=== PATIENT | female | born 1950 | race Caucasian/White ===

== ENCOUNTER 2016-05-06 06:35 | Inpatient (IN) | payer OTHER ==
[2016-03-17 08:54] VITALS: BMI 35.0
--- NOTE | 2016-03-17 09:19 | PAT Medication Instructions ---
Service Date Mar 17, 2016. Current Home Medication List Amlodipine (Norvasc), 10 MG PO QAM Hydrochlorothiazide (Hctz *), 25 MG PO QAM Ibuprofen Tab (Advil), 400-600 MG PO Q6H PRN for Pain Losartan Potassium (Cozaar *), 50 MG PO QAM Metformin Hcl (Glucophage), 500 MG PO DINNER Medication Instructions For Your Scheduled Surgery - Check with surgeon for instructions: Ibuprofen Tab (Advil), 400-600 MG PO Q6H PRN for Pain - Hold the following medications 48 hours prior to surgery: Metformin Hcl (Glucophage), 500 MG PO DINNER - Hold the following medications the morning of surgery: Losartan Potassium (Cozaar *), 50 MG PO QAM Hydrochlorothiazide (Hctz *), 25 MG PO QAM - Take the following medications the morning of surgery with a sip of water: Amlodipine (Norvasc), 10 MG PO QAM If you have any questions please call us at [phone] (Anjelica Long PA-C) or [phone] or [phone]
[2016-03-17 09:44] LABS: BASO % 0.9 %; BASO ABS # 0.08 K/uL (0-0.2); COMPLETE YES; EOS % 3.5 %; HEMATOCRIT 39.7 % (37-47); IG% 0.4 %; LYMPH % 29.2 %; LYMPH ABS # 2.47 K/uL (1.2-3.4); MEAN CELL VOLUME 83.6 fL (80-100); MEAN CORPUSCULAR HEMOGLOBIN 28.2 pg (25-34); MEAN CORPUSCULAR HGB CONC 33.8 g/dl (32-36); MEAN PLATELET VOLUME 10.6 fL (7.4-10.4); MONO % 8.6 %; NEUT % 57.4 %; PLATELET COUNT 369 K/uL (130-400); RED BLOOD COUNT 4.75 M/uL (4.2-5.4); WHITE BLOOD COUNT 8.46 K/uL (4.8-10.8)
[2016-03-17 10:06] LABS: PROTHROMBIN TIME (PATIENT) 10.4 SECONDS (9.0-12.0)
--- NOTE | 2016-03-17 10:13 | DIAGNOSTIC IMAGING REPORT ---
TWO VIEW CHEST CLINICAL HISTORY: Preoperative examination. FINDINGS: PA and lateral chest radiographs are compared to study dated 01/22/2015. The heart is enlarged and there is mild atherosclerotic calcification of the thoracic aorta. The pulmonary vasculature is noncongested. The lungs appear hyperinflated. Nonspecific interstitial thickening is similar to previous. No airspace consolidation or pleural effusion is seen. Small calcified granulomas are suspected. There is no pneumothorax. The skeletal structures are osteopenic. Degenerative change is noted throughout the thoracic spine. IMPRESSION: Cardiomegaly with no active disease in the chest. Electronically signed by: Marty Valenzuela M.D. 03/17/2016 10:12 AM Dictated Date/Time: 03/17/2016 10:08 AM
[2016-03-17 10:20] LABS: BLOOD UREA NITROGEN 14 mg/dl (7-18); BUN/CREATININE RATIO 22.2 (10-20); C-REACTIVE PROTEIN < 0.29 mg/dl (0-0.29); CALCIUM 9.3 mg/dl (8.5-10.1); CARBON DIOXIDE 28 mmol/L (21-32); CHLORIDE 103 mmol/L (98-107); CREATININE 0.65 mg/dl (0.60-1.20); GLUCOSE 106 mg/dl (70-99); POTASSIUM 3.7 mmol/L (3.5-5.1); SODIUM 140 mmol/L (136-145)
--- NOTE | 2016-04-09 15:34 | HISTORY & PHYSICAL EXAMINATION ---
DATE OF ADMISSION: 04/13/2016 CHIEF COMPLAINT: Right knee pain. HISTORY OF PRESENT ILLNESS: The patient is a 66-year-old female now about 3 years out from left knee replacement who presents for treatment of her right knee. She has had a long history of right knee pain and discomfort that has gradually gotten worse over time. She has been through extensive conservative care including injections, which provided very temporary relief. She has got pain all the time. It is increased with weightbearing. The pain is mostly on the medial side of her knee. She also describes a burning sensation. She is happy with the left knee and would like to her right knee replaced. PAST MEDICAL HISTORY: Significant for: 1. Hypertension. 2. Diabetes x7 years. 3. Obesity with a BMI of 35.7. 4. Kidney stones. PAST SURGICAL HISTORY: Include: 1. Left knee replacement done in 03/12/2013. ALLERGIES: None. CURRENT MEDICINES: Include: 1. Amlodipine 10 mg. 2. Hydrochlorothiazide 25 mg a day. 3. Losartan 50 mg a day. 4. Metformin 500 mg twice a day. 5. Bactrim. SOCIAL HISTORY: A 66-year-old female. She is from [place]. She is . FAMILY HISTORY: Noncontributory. REVIEW OF SYSTEMS: Significant for diabetes. Denies any chest pain, no shortness of breath. No history of DVT or PE. PHYSICAL EXAMINATION: GENERAL: Reveals a pleasant, healthy-appearing, middle-aged female. She looks to be in good health. HEENT: Benign. NECK: Supple. No lymphadenopathy. LUNGS: Clear to auscultation. HEART: Regular rate and rhythm. ABDOMEN: Soft, nontender, nondistended. EXTREMITIES: Grossly neurovascularly intact except as follows: Examination of the right knee reveals slight varus deformity. When she weight bears, she has got a little bit of a varus thrust. She has got bony hypertrophy medially. Small knee effusion. Range of motion is 5-120. No instability. X-RAYS: X-rays of right knee revealed advanced right knee DJD. She has complete loss of her medial joint space. She has subchondral sclerosis. ASSESSMENT: A 66-year-old white female, 3 years out from a left knee replacement with advanced right knee degenerative joint disease. She has failed conservative care and will undergo a right knee replacement. PLAN: We are going to take her to the operating room and do a right total knee replacement. The risks and benefits of this procedure were explained to the patient including but not limited to DVT, PE, , infection, neurological injury, vascular injury, bleeding problem, pain, limited range of motion, stiffness, failure to relieve her symptoms, incomplete relief of symptoms, need for further surgery in the future, fracture, leg length inequality, nerve palsy, etc. The patient understands and desires. Informed consent was obtained. The patient had preoperative workup. Chest x-ray showed some mild cardiomegaly. No acute disease. EKG was normal. Labs are normal. As far as discharge plans, she is planning to be discharged to home using [facility] home health program. I will see her back 2 weeks postop. BEVERLEY
[2016-05-06] VITALS (8 sets, daily range): BP systolic 135–155; BP diastolic 73–87; PULSE 65–85; TEMP 36.4–37.2; O2SAT 94–98; Ht 165.1 cm; Wt 97.3 kg
[~2016-05-06] VITALS: Ht 165.1 cm; Wt 97.3 kg
[~2016-05-06 06:35] MED LIST: ACETAMINOPHEN 500 MG TAB PO SCH; AMLO-114 PO; BUPIVACAINE 0.5 % 5 MG/1 ML PF 10ML VIAL ONE; BUPIVACAINE LIPOSOME 266 MG, BUPIVACAINE/EPINEPHRINE INJ 50 ML, SODIUM CHLORIDE 0.9% PF... INFIL SCH; BUPIVACAINE/EPINEPHRINE 0.25% 1:200,000 30 ML VIAL ONE; CEFAZOLIN 2000 MG/60 ML D5W IV SCH; CHECK SCOPOLAMINE PATCH PLACEMENT SCH; CZR50 PO; FAMOTIDINE 20 MG TAB PO SCH; GABAPENTIN 300 MG CAP PO SCH; GLC/500 PO; HYDC25 PO; IBUP-103 PO; LACTATED RINGER'S 1000ML 1,000 ML IV SCH; LACTATED RINGER'S 1000ML 500 ML IV ONE; LACTATED RINGER'S 1000ML IV SCH; LACTATED RINGER'S 500 ML IV SCH; METOCLOPRAMIDE HCL 10 MG TAB PO SCH; SCOPOLAMINE 1.5 MG TDSY TD SCH; TRANEXAMIC ACID INJ 1,000 MG in SODIUM CHLORIDE 0.9% 100ML 100 ML IV SCH
--- NOTE | 2016-05-06 07:00 | History & Physical Bridge Note ---
H&P Re-Evaluation Bridge Note: I have examined the patient, reviewed the History & Physical and in the interval since the performance of the History & Physical I have noted the following changes of clinical significance: No changes noted
[2016-05-06] MEDS ORDERED: MIDAZOLAM HCL 1 MG/ML 2ML VIAL ONE ×2 (07:31→09:36)
[2016-05-06] MEDS ORDERED: FENTANYL CITRATE INJ 50 MCG/1 ML 2 ML VIAL ONE (07:31)
[2016-05-06] MEDS ORDERED: ONDANSETRON INJ 2 MG/ML 2 ML VIAL IV PRN ×2 (07:45→11:00)
[2016-05-06] MEDS ORDERED: FLUMAZENIL 0.1 MG/1 ML 10 ML VIAL IV PRN (07:45)
[2016-05-06] MEDS ORDERED: PHENYLEPHRINE 100MCG/ML 5ML SYR IV PRN (07:45)
[2016-05-06] MEDS ORDERED: NALOXONE HCL 0.4 MG/1 ML VIAL/CARP IV PRN (07:45)
[2016-05-06] MEDS ORDERED: LABETALOL HCL IV 5 MG/ML 20ML IV PRN (07:45)
[2016-05-06] MEDS ORDERED: ATROPINE SULFATE 0.1 MG/ML 5ML SYR IV PRN (07:45)
[2016-05-06] MEDS ORDERED: EpHEDrine SULFATE INJ 50 MG/ML AMP IV PRN (07:45)
[2016-05-06] MEDS ORDERED: BUPIVACAINE/EPINEPHRINE 0.25% 1:200,000 30 ML VIAL ONE (08:59)
[2016-05-06] MEDS ORDERED: BACITRACIN 50000 UNIT VIAL ONE (08:59)
[2016-05-06] MEDS ORDERED: SODIUM CHLORIDE 0.9% PF 50 ML VIAL ONE (08:59)
[2016-05-06] MEDS ORDERED: BUPIVACAINE LIPOSOME 1/3% 266 MG/20 ML VIAL INFIL ONE (09:00)
[2016-05-06] MEDS ORDERED: PROPOFOL IV EMULSION 10 MG/ML 20 ML VIAL IV ONE (09:46)
[2016-05-06] MEDS ORDERED: LIDOCAINE HCL 2% 2 ML VIAL (20MG/ML) ONE (10:08)
--- NOTE | 2016-05-06 10:47 | [facility] Post Operative Brief Note ---
Immediate Operative Summary Operative Date May 06, 2016. Pre-Operative Diagnosis Right Knee Degenerative Joint Disease Post-Operative Diagnosis same as pre-operative Procedure(s) Performed Right Total Knee Arthroplasty Surgeon Dr. Jhon Vlileda Line Patrolman Surgeon(s) Haroon Orellana PA-C Estimated Blood Loss 50ml Findings Right Knee DJD Specimens A: Right knee bone and tissue Drains None Anesthesia Spinal Complication(s) None Disposition Recovery Room / PACU
[2016-05-06] MEDS ORDERED: GLUCOSE 10 TABS/TUBE PO PRN (11:00)
[2016-05-06] MEDS ORDERED: ZOLPIDEM TARTRATE 5 MG TAB PO PRN (11:00)
[2016-05-06] MEDS ORDERED: GLUCOSE 40% GEL 15 GM TUBE PO PRN (11:00)
[2016-05-06] MEDS ORDERED: HYDROmorphone INJ 0.5 MG/0.5 ML SYR IV PRN (11:00)
[2016-05-06] MEDS ORDERED: GLUCAGON FOR INJ 1 MG VIAL SQ PRN (11:00)
[2016-05-06] MEDS ORDERED: MAGNESIUM HYDROXIDE SUSP 30 ML UDC PO PRN (11:00)
[2016-05-06] MEDS ORDERED: SILVER SULFADIAZINE 1% CR 50 GM JAR EXT PRN (11:00)
[2016-05-06] MEDS ORDERED: DiphenhydrAMINE HCL 50 MG/ML VIAL IV PRN (11:00)
[2016-05-06] MEDS ORDERED: BISACODYL 10 MG SUPP PR PRN (11:00)
[2016-05-06] MEDS ORDERED: DEXTROSE 50% 50 ML SYR IV PRN (11:00)
[2016-05-06] MEDS ORDERED: ALUMINUM/MAGNESIUM/SIMETH (MAALOX MAX) 30 ML UDC PO PRN (11:00)
[2016-05-06] MEDS ORDERED: METOCLOPRAMIDE HCL INJ 5 MG/ML 2 ML VIAL IV PRN (11:00)
--- NOTE | 2016-05-06 11:18 | OPERATIVE REPORT ---
DATE OF OPERATION: 05/06/2016 SURGEON: Jhon Villeda MD CRIB ATTENDANT: RAVIN Hurst PREOPERATIVE DIAGNOSIS: Right knee degenerative joint disease. POSTOPERATIVE DIAGNOSIS: Same. PROCEDURE PERFORMED: Right cemented posterior stabilized total knee arthroplasty. COMPLICATIONS: None. ESTIMATED BLOOD LOSS: 50 mL. FLUID REPLACEMENT: 1100 mL crystalloid fluid replacement. ANESTHESIA: Spinal with adductor canal block. DRAINS: None. SPECIMENS: Right knee sent for pathology. TOURNIQUET TIME: 51 minutes at 300 mmHg. OPERATIVE INDICATIONS: The patient is a 66-year-old female who is now about 3 years out from a left knee replacement. Over the past several years, she developed increased pain and discomfort in her right knee. She failed conservative treatment. X-rays revealed advanced right knee DJD. The patient elected to proceed with operative treatment. OPERATIVE FINDINGS: Operative findings revealed advanced right knee DJD with grade 4 changes of the medial compartment as well as patellofemoral compartment. The lateral compartment was pretty well preserved. There is no major eburnation, but full thickness cartilage loss in both these areas. She had a moderate sized joint effusion. Small osteophytes primarily in the medial compartment. OPERATIVE IMPLANTS: Operative implants consisted of: 1. Biomet Vanguard size 60 right posterior stabilized femoral component. 2. Biomet size 63 tibial tray. 3. A 12-mm posterior stabilized polyethylene insert. 4. A 31 x 8 all poly patella. OPERATIVE PROCEDURE: The patient was taken to the operating room, identified and placed on operative table in the supine position. All contact areas were appropriately padded. IV antibiotics were provided by the anesthesia team. A spinal anesthetic and adductor canal block had been provided in the holding area. Castillo catheter was placed in sterile fashion. Right thigh tourniquet was then placed. The right lower extremity was then prepped and draped in the usual sterile fashion. The right leg was elevated and exsanguinated with Esmarch and tourniquet was placed at 300 mmHg. An anterior approach to the right knee was then performed through a longitudinal incision centered over the patella. Sharp dissection was carried through the subcutaneous tissues down to the level of the extensor mechanism. A medial parapatellar arthrotomy incision was made. Some subperiosteal dissection was carried out medially. The fat pad was resected from beneath the patellar tendon. The lateral patellofemoral ligament was released. The patella was everted and knee was flexed. The osteophytes were taken off the distal femur. The ACL and PCL were then released from the distal femur and the tibia subluxated anteriorly. The external tibial alignment jig was then placed in the anterior face of the tibia and adjusted 14 mm medially. Proximal tibial cut was made to remove about 2 mm of bone from the most deficient aspect of the medial tibial plateau. The tibia was then sized to a size 63. Attention was then drawn to the femur. The distal femur was entered with a sharp drill bit. Intramedullary canal was suctioned. A right 5-degree valgus cutting guide was placed. Distal femoral cutting block was pinned in place. Distal femoral cut was made to take an additional 3 mm of bone off the distal femur. The femur was then sized to a size 60. We did downsize this slightly. The AP cutting block was pinned parallel to the epicondylar axis, which was 4 degrees of external rotation. The anterior cut, anterior chamfer, posterior cut, and posterior chamfer cuts were made. Box cutting guide was placed and adjusted slightly lateral and the box cut was made. The knee was flexed. The remnants of the medial and lateral menisci were excised. The osteophytes were taken off the posterior aspect of the femur. A trial femoral component was placed. Tibial tray was pinned in maximum external rotation and drill and stem punch were used to create defect in proximal tibia for the tibial tray. The knee was then trialed and the 12-mm insert fit most appropriately. There was a little bit lax with a 10 insert and her knee did hyperextend. Attention was then drawn to the patella. The patella was cleaned of all soft tissues. Patella thickness measured 20 mm in thickness and was cut down to 12. It was sized to a size 31 patella. Lug holes were drilled for the 31 patella. Lateral osteophyte was removed. Patella button was placed. Knee was taken through range of motion and the patella tracked nicely with no thumbs test. Attention was then drawn toward placement of permanent components. All trial components were removed. A bone plug was placed in the distal femur to limit blood loss. A double batch of Palacos G cement was mixed. A right size 60 posterior stabilized femoral component, size 63 tibial tray, a 12-mm posterior stabilized polyethylene insert, and a 31 x 8 all poly patella then cemented in place. Knee was brought out into full extension until cement hardened. A final cement check was then performed. Pericapsular tissues were injected with 100 mL of a combination of 20 mL of Exparel, 30 mL of normal saline, and 50 mL of 0.25% Marcaine with epinephrine. The patient did receive 1 gram of tranexamic acid. The tourniquet was let down for final tourniquet time of 51 minutes. Hemostasis was assured with use of electrocautery. The extensor mechanism was then closed with a combination of #1 PDS suture and #1 Vicryl suture in a [id number] fashion. The extensor mechanism was checked and found to be intact. The subcutaneous tissues were then closed with 2-0 Dexon suture in a buried interrupted fashion. Skin was closed skin jovani. Leg was then cleaned and dried and a sterile dressing of Xeroform, 4 x 4, sterile cast padding and Endy bandage were applied. The patient then transferred to the recovery room in stable condition. The patient tolerated the procedure well with no complications. All needle and sponge counts were correct at the end of the operation. I attest to the content of the Intraoperative Record and any orders documented therein. Any exceptio ns are noted below.
[2016-05-06] MEDS: FENTANYL CITRATE INJ 50 MCG/1 ML 2 ML VIAL IV PRN ×8 (11:24→12:17)
--- NOTE | 2016-05-06 11:39 | Anesthesiology Progress Note ---
Anesthesia Post Op Note Date & Time May 06, 2016 at 11:40 Vital Signs Pain Intensity: 3 Vital Signs Past 12 Hours Date Time Temp Pulse Resp B/P Pulse Ox O2 Delivery O2 Flow Rate FiO2 05/06/16 10:54 37.5 90 16 143/72 97 Mask 10 05/06/16 07:08 36.6 85 20 148/86 98 Room Air Notes Mental Status: alert / awake / arousable, participated in evaluation Pt Amnestic to Procedure: Yes Nausea / Vomiting: adequately controlled Pain: adequately controlled Airway Patency, RR, SpO2: stable & adequate BP & HR: stable & adequate Hydration State: stable & adequate Neuraxial Anesthesia: was administered, sensory block is resolving Anesthetic Complications: no major complications apparent
[2016-05-06] MEDS ORDERED: FENTANYL CITRATE INJ 50 MCG/1 ML 2 ML VIAL IV PRN (11:45)
--- NOTE | 2016-05-06 11:46 | DIAGNOSTIC IMAGING REPORT ---
RIGHT KNEE 2 VIEWS History: Right total knee arthroplasty. Degenerative arthritis. Postop. FINDINGS: The patient is status post a right total knee arthroplasty. The hardware is intact. No fracture or dislocation. Skin jovani are in place. IMPRESSION: Right total knee arthroplasty. No evidence for hardware complication. Electronically signed by: David Yeager M.D. 05/06/2016 11:45 AM Dictated Date/Time: 05/06/2016 11:45 AM
[2016-05-06] MEDS: MEPERIDINE HCL 25 MG/ML CARP IV PRN ×2 (12:22→12:30)
[2016-05-06] MEDS: SODIUM CHLORIDE 0.9% 1000ML 1,000 ML IV SCH ×2 (14:13→21:38)
[2016-05-06] MEDS: TRAMADOL HCL 50 MG TAB PO PRN (14:17)
--- NOTE | 2016-05-06 15:27 | PROGRESS NOTE ---
DATE: 05/06/2016 SUBJECTIVE: A 66-year-old white female postop from a right knee replacement. She is doing well. Not nauseated all, which is a big relief for her. Some pain. It is manageable. No chest pain or shortness of breath. Not feeling dizzy or lightheaded. OBJECTIVE: VITAL SIGNS: Temperature is 36.4. Vital signs stable. GENERAL: Reveals a healthy middle-aged female. She is sitting up in bed and talking to her . She looks pretty comfortable. LUNGS: Clear to auscultation. HEART: Regular rate and rhythm. ABDOMEN: Soft, nontender, nondistended. EXTREMITIES: Grossly neurovascularly intact except as follows: Examination of the right leg reveals the leg to be well aligned. Dressing is clean, dry and intact. She can dorsiflex and plantarflex her foot appropriately. She is neurologically intact. X-RAYS: X-rays of the right knee from recovery room reviewed. It shows a cemented posterior stabilized total knee arthroplasty. Components are in good position. No signs of problems. ASSESSMENT: A 66-year-old white female postop from a right knee replacement, doing pretty well. Her pain is controlled. She is not having any nausea. She is neurologically intact. PLAN: 1. DVT prophylaxis including thigh-high TEDs, SCDs, and aspirin twice a day. 2. PT/OT. Weightbearing as tolerated. Right total knee protocol. 3. IV antibiotics x24 hours. 4. Pain control. Doing well with current pain regimen. We are going to try and limit narcotics to avoid nausea. 5. Disposition: Plan to discharge to home with home health once adequately recovered.
[2016-05-06] MEDS: CHECK SCOPOLAMINE PATCH PLACEMENT SCH (16:47)
[2016-05-06] MEDS: CEFAZOLIN IV 2,000 MG in DEXTROSE 5% 50ML 50 ML IV SCH (16:47)
[2016-05-06] MEDS: ACETAMINOPHEN 500 MG TAB PO SCH (16:48)
[2016-05-06] MEDS: KETOROLAC TROMETHAMINE 15 MG/ML VIAL IV. SCH ×2 (16:51→21:41)
[2016-05-06] MEDS: INSULIN HUMAN REGULAR SC SCH ×2 (17:08→21:47)
[2016-05-06] MEDS ORDERED: TRANEXAMIC ACID INJ 1,000 MG in SODIUM CHLORIDE 0.9% 100ML 100 ML IV SCH (18:00)
[2016-05-06] MEDS: FERROUS GLUCONATE 324 MG TAB PO SCH (18:30)
[2016-05-06] MEDS: DOCUSATE SODIUM 100 MG CAP PO SCH (21:37)
[2016-05-06] MEDS: ASPIRIN 325 MG ECTAB PO SCH (21:37)
[2016-05-07] VITALS (7 sets, daily range): BP systolic 133–177; BP diastolic 70–81; PULSE 75–82; TEMP 36.7–37.3; O2SAT 92–96
[2016-05-07] MEDS: CEFAZOLIN IV 2,000 MG in DEXTROSE 5% 50ML 50 ML IV SCH (00:40)
[2016-05-07] MEDS: ACETAMINOPHEN 500 MG TAB PO SCH ×4 (00:41→23:45)
[2016-05-07] MEDS: CHECK SCOPOLAMINE PATCH PLACEMENT SCH ×4 (00:41→23:45)
[2016-05-07] MEDS: KETOROLAC TROMETHAMINE 15 MG/ML VIAL IV. SCH ×4 (03:54→21:24)
[2016-05-07] MEDS: SODIUM CHLORIDE 0.9% 1000ML 1,000 ML IV SCH (06:03)
[2016-05-07 06:47] LABS: HEMATOCRIT 36.2 % (37-47); MEAN CELL VOLUME 82.1 fL (80-100); MEAN CORPUSCULAR HEMOGLOBIN 27.4 pg (25-34); MEAN CORPUSCULAR HGB CONC 33.4 g/dl (32-36); PLATELET COUNT 380 K/uL (130-400); RED BLOOD COUNT 4.41 M/uL (4.2-5.4); WHITE BLOOD COUNT 14.53 K/uL (4.8-10.8)
[2016-05-07 07:12] LABS: BUN/CREATININE RATIO 12.3 (10-20); CALCIUM 8.8 mg/dl (8.5-10.1); CREATININE 0.66 mg/dl (0.60-1.20); POTASSIUM 3.6 mmol/L (3.5-5.1)
[2016-05-07] MEDS ORDERED: ASPEC325 PO (07:28)
[2016-05-07] MEDS ORDERED: ULT50X PO (07:28)
[2016-05-07] MEDS ORDERED: ACET-1138 PO (07:28)
[2016-05-07] MEDS ORDERED: PROM25TA9 PO (07:28)
--- NOTE | 2016-05-07 07:30 | Discharge Instructions ---
Discharge Instructions Date of Service May 07, 2016. Admission Reason for Admission: Right Knee Osteoarthritis Discharge Discharge Diagnosis / Problem: Right Knee Replacement Discharge Goals Goal(s): Decrease discomfort, Improve function, Increase independence, Improve disease control Activity Recommendations Activity Limitations: per Instructions/Follow-up section Weightbearing Status: Right weightbearing . Instructions / Follow-Up Instructions / Follow-Up ACTIVITY RECOMMENDATIONS: Physical Therapy: * You will go to physical therapy three times each week for four to six weeks after your surgery in order to regain your knee range of motion and to retrain your knee to work properly. * It is just as important to make sure you are getting your knee perfectly straight as it is to regain your knee bend. * Taking a pain pill an hour before therapy can help you have a more productive and comfortable therapy session. Home Exercise: * You were shown a series of exercises (heel props, heel slides, etc.) in the hospital. Do these exercises three to four times each day including the exercises you were shown in physical therapy. Walking: * Get up and walk several times each day. For the first four weeks, try not to stand or walk for more than one hour at a time. If you do stand or walk for more than one hour, you will not hurt anything, but your knee and leg will likely swell. * As you feel comfortable, you may change from the walker or crutches to a cane and then to independent walking. MEDICATIONS: New Medicine: * You will likely be taking one or more of these medications: 1. Tramadol - A quick and shorter-acting pain medication. Take one to two tablets every four to six hours to lessen your pain. 2. Aspirin - Thins your blood to lessen the chance of forming a blood clot. * The most common side effects of pain medicine and iron are nausea and constipation. If nausea or constipation is too much of a problem or if you have any questions about your new medicines or doses, call [facility] at . We will try to help you manage these issues. VERY IMPORTANT TO READ AND REVIEW" Pain: * The immediate post-operative period after knee replacement surgery is often quite painful. * You are given a prescription for pain medicine. You should take it, as directed, when you need it, especially before physical therapy and before going to bed. Pain that interferes with sleep is very common and can last several months. * You will likely need pain medicine for the first four to six weeks. It will not stop all of the pain. The pain will lessen and as you feel better, you may change to milder pain medicine such as Tylenol. * The most common side effects of pain medicine are nausea and constipation, so don't take more than you need. SPECIAL CARE INSTRUCTIONS: TEDs/Elastic Stockings: * The white elastic stockings help limit swelling and prevent blood clots from forming in your legs. The more you wear them, the more they work. * Wear them for six weeks after knee replacement surgery and four weeks after partial knee replacement. Prevention of Infection: * Take antibiotics one hour before any dental cleaning, dental work, urological procedure, gastrointestinal procedure or any invasive surgery in order to prevent your new joint from getting infected. * You may get the antibiotics from the doctor performing the procedure or you may call our office at before and we will call in a prescription to the pharmacy of your choice. Things to Watch For: * Drainage from the incision site that occurs more than one week after your surgery. * Severely increased knee/leg pain or swelling. * Increased redness at the incision site. * Fever above 102 degrees Fahrenheit. * Unusual chest pain or shortness of breath. * Unusual pain or burning with urination. Call [facility] at with any of the above problems or if you have any questions about your medicines or recovery. FOLLOW UP VISIT: Make an appointment to see your doctor for approximately two weeks after surgery for a progress check and staple removal by calling the office at . Current Hospital Diet Patient's current hospital diet: Diabetes Type 2 Diet Discharge Diet Recommended Diet: Diabetes Type 2 Diet Procedures Procedures Performed: Right Total Knee Arthroplasty Pending Studies Studies pending at discharge: no Medical Emergencies . Who to Call and When: Medical Emergencies: If at any time you feel your situation is an emergency, please call [phone] immediately. . Non-Emergent Contact Non-Emergency issues call your: Surgeon . "Provider Documentation" section prepared by Jhon Villeda. VTE Core Measure Inpt VTE Proph given/why not?: Other Anticoagulation, T.E.D. Stockings, SCD's
--- NOTE | 2016-05-07 07:36 | PROGRESS NOTE ---
DATE: 05/07/2016 SUBJECTIVE: A 66-year-old female postop day 1 from right knee replacement. She is doing well. She did not have any nausea. Some moderate pain but manageable. No chest pain or shortness of breath. Not feeling dizzy or lightheaded. OBJECTIVE: VITAL SIGNS: Temperature 36.7. Vital signs stable. PHYSICAL EXAMINATION: GENERAL: Reveals a healthy, pleasant middle-aged female. She is sitting up in bed and looks quite comfortable. LUNGS: Clear to auscultation. HEART: Regular rate and rhythm. ABDOMEN: Soft, nontender, nondistended. EXTREMITIES: Grossly neurovascularly intact except as follows: Examination of the right lower extremity reveals the leg to be well aligned. Dressing is clean, dry and intact. She can dorsiflex and plantarflex her foot appropriately. NEUROLOGIC: She is neurologically intact. LABORATORY DATA: Hemoglobin 12.1, hematocrit 36.2. Electrolytes are stable. ASSESSMENT: A 66-year-old white female postop day 1 from right knee replacement, doing well. Had problems with nausea in the past but doing well with current pain regimen. PLAN: 1. DVT prophylaxis including thigh-high TEDs, SCDs, and aspirin twice a day. 2. PT/OT. Weightbearing as tolerated. Right total knee protocol. 3. Pain control, doing pretty well with current pain regimen. We are going to try and use tramadol and Toradol and limit more aggressive narcotics. 4. Disposition: Plan to discharge to home with home health once adequately recovered.
[2016-05-07] MEDS: TRAMADOL HCL 50 MG TAB PO PRN ×2 (08:20→13:03)
[2016-05-07] MEDS: LOSARTAN POTASSIUM 50 MG TAB PO SCH (08:35)
[2016-05-07] MEDS: PANTOprazole SOD 40 MG TAB PO SCH (08:35)
[2016-05-07] MEDS: FERROUS GLUCONATE 324 MG TAB PO SCH ×3 (08:35→17:37)
[2016-05-07] MEDS: MULTIVITAMIN TAB PO SCH (08:35)
[2016-05-07] MEDS: HYDROCHLOROTHIAZIDE 25 MG TAB PO SCH (08:35)
[2016-05-07] MEDS: ASPIRIN 325 MG ECTAB PO SCH ×2 (08:36→20:44)
[2016-05-07] MEDS: DOCUSATE SODIUM 100 MG CAP PO SCH ×2 (08:36→20:44)
[2016-05-07] MEDS: AMLODIPINE BESYLATE 5 MG TAB PO SCH (08:36)
[2016-05-07] MEDS: INSULIN HUMAN REGULAR SC SCH ×4 (08:44→20:49)
[2016-05-08] MEDS: TRAMADOL HCL 50 MG TAB PO PRN ×2 (03:57→08:18)
[2016-05-08] MEDS: KETOROLAC TROMETHAMINE 15 MG/ML VIAL IV. SCH (03:58)
[2016-05-08 06:35] VITALS: BP 123/76; PULSE 76; TEMP 36.9; O2SAT 94
[2016-05-08] MEDS: DOCUSATE SODIUM 100 MG CAP PO SCH (08:00)
[2016-05-08] MEDS: AMLODIPINE BESYLATE 5 MG TAB PO SCH (08:00)
[2016-05-08] MEDS: FERROUS GLUCONATE 324 MG TAB PO SCH (08:00)
[2016-05-08] MEDS: ASPIRIN 325 MG ECTAB PO SCH (08:00)
[2016-05-08] MEDS: ACETAMINOPHEN 500 MG TAB PO SCH (08:01)
[2016-05-08] MEDS: HYDROCHLOROTHIAZIDE 25 MG TAB PO SCH (08:02)
[2016-05-08] MEDS: LOSARTAN POTASSIUM 50 MG TAB PO SCH (08:02)
[2016-05-08] MEDS: MULTIVITAMIN TAB PO SCH (08:02)
[2016-05-08] MEDS: PANTOprazole SOD 40 MG TAB PO SCH (08:02)
[2016-05-08] MEDS: INSULIN HUMAN REGULAR SC SCH (08:16)
--- NOTE | 2016-05-08 08:39 | PROGRESS NOTE ---
DATE: 05/08/2016 SUBJECTIVE: A 66-year-old female postop day 2 from right knee replacement. She is doing pretty well. Pain is controlled. Not having any nausea. No chest pain or shortness of breath. OBJECTIVE: VITAL SIGNS: Temperature 36.9. Vital signs stable. PHYSICAL EXAMINATION: Examination of the right leg reveals the leg to be well aligned. Her incision is clean, dry and intact. No significant drainage. Calf is soft and supple. She is neurologically intact. ASSESSMENT: A 66-year-old female postop day 2 from a right knee replacement, doing well. Pain is controlled. PLAN: 1. DVT prophylaxis including thigh-high TEDs, SCDs, and aspirin twice a day. 2. PT/OT. Weightbearing as tolerated. Right total knee protocol. 3. Pain control, doing pretty well with current pain regimen. 4. Nausea. Has not had any real nausea after surgery. Will use antiemetic medicine as needed. 5. Disposition: Plan to discharge to home with some home health later today.
[2016-05-08 09:29] VITALS: BP 123/76; PULSE 76; TEMP 36.9; O2SAT 94
--- NOTE | 2016-05-17 18:50 | DISCHARGE SUMMARY ---
ADMITTING PHYSICIAN AND SURGEON: Dr. Villeda. ADMITTING DIAGNOSIS: Right knee degenerative joint disease. SURGERY PERFORMED: Right total knee arthroplasty. SECONDARY DIAGNOSES: Includes hypertension, diabetes, obesity, and kidney stones. CONSULTS: None obtained. HISTORY AND PHYSICAL EXAMINATION: Well documented on the patient's chart. HOSPITAL COURSE: The patient was admitted on 05/06/2016 and underwent total knee arthroplasty, tolerated the procedure well. There were no complications. She was transferred to the PACU postoperatively and later to the orthopedic floor for further care. She was given Ancef for antibiotic prophylaxis, ROXANN stockings, SCDs and aspirin for DVT prophylaxis. Hemoglobin, hematocrit and vital signs were monitored during her hospital stay and remained stable. Did not require any blood transfusions. There were no complications. By postoperative day #2, she was tolerating a diabetic diet. Pain was controlled with oral pain medicine. She was participating in physical therapy and had no signs or symptoms of deep vein thrombosis. On postop day #2, she was discharged home in good condition, set up with home health services. She was given printed discharge instructions including prescriptions for extra strength Tylenol, aspirin 325 mg b.i.d., Phenergan for nausea, tramadol for pain. Continue her home medications. Continue physical therapy, weightbearing as tolerated, ROXANN stockings. Follow up in 10-12 days or sooner if there are problems or concerns.
== END 2016-05-08 10:08 | disposition home health service (06) | DRG 470 ==
LOC: ENRESERVTM → ENRESERVDT → C.ACU 06:35 → C.3E 07:05
PROVIDERS: ADMIT Orthopaedic Surgery Sports Medicine; ATTEND Orthopaedic Surgery Sports Medicine
PROC: 0SRC0J9 Replacement of Right Knee Joint with Synthetic Substitute, Cemented, Open Approach (ICD-10-PCS; principal; 2016-05-06 09:05)
DX: M17.11 Unilateral primary osteoarthritis, right knee (principal); M21.161 Varus deformity, not elsewhere classified, right knee; M25.461 Effusion, right knee; I10 Essential (primary) hypertension; E11.9 Type 2 diabetes mellitus without complications; E66.9 Obesity, unspecified; Z68.32 Body mass index [BMI] 32.0-32.9, adult; Z96.652 Presence of left artificial knee joint; Z79.84 Long term (current) use of oral hypoglycemic drugs; Z79.899 Other long term (current) drug therapy

== ENCOUNTER → 2016-08-05 | Outpatient (CLI) | payer OTHER ==
[~2016-08-05] MED LIST changes: +ACET-1138 PO; -ACETAMINOPHEN 500 MG TAB PO SCH; +ASPEC325 PO; -BUPIVACAINE 0.5 % 5 MG/1 ML PF 10ML VIAL ONE; -BUPIVACAINE LIPOSOME 266 MG, BUPIVACAINE/EPINEPHRINE INJ 50 ML, SODIUM CHLORIDE 0.9% PF... INFIL SCH; -BUPIVACAINE/EPINEPHRINE 0.25% 1:200,000 30 ML VIAL ONE; -CEFAZOLIN 2000 MG/60 ML D5W IV SCH; -CHECK SCOPOLAMINE PATCH PLACEMENT SCH; -FAMOTIDINE 20 MG TAB PO SCH; -GABAPENTIN 300 MG CAP PO SCH; -LACTATED RINGER'S 1000ML 1,000 ML IV SCH; -LACTATED RINGER'S 1000ML 500 ML IV ONE; -LACTATED RINGER'S 1000ML IV SCH; -LACTATED RINGER'S 500 ML IV SCH; -METOCLOPRAMIDE HCL 10 MG TAB PO SCH; -SCOPOLAMINE 1.5 MG TDSY TD SCH; -TRANEXAMIC ACID INJ 1,000 MG in SODIUM CHLORIDE 0.9% 100ML 100 ML IV SCH; +ULT50X PO
[2016-08-05 12:37] LABS: BASO % 0.5 %; BASO ABS # 0.05 K/uL (0-0.2); COMPLETE YES; EOS % 2.9 %; HEMATOCRIT 40.2 % (37-47); IG% 0.4 %; LYMPH % 23.4 %; LYMPH ABS # 2.32 K/uL (1.2-3.4); MEAN CELL VOLUME 82.9 fL (80-100); MEAN CORPUSCULAR HEMOGLOBIN 27.4 pg (25-34); MEAN CORPUSCULAR HGB CONC 33.1 g/dl (32-36); MEAN PLATELET VOLUME 10.4 fL (7.4-10.4); MONO % 8.6 %; NEUT % 64.2 %; PLATELET COUNT 390 K/uL (130-400); RED BLOOD COUNT 4.85 M/uL (4.2-5.4)
[2016-08-05 13:05] LABS: BLOOD UREA NITROGEN 13 mg/dl (7-18); BUN/CREATININE RATIO 18.7 (10-20); CALCIUM 9.5 mg/dl (8.5-10.1); CARBON DIOXIDE 28 mmol/L (21-32); CHLORIDE 103 mmol/L (98-107); CREATININE 0.69 mg/dl (0.60-1.20); GLUCOSE 110 mg/dl (70-99); SODIUM 138 mmol/L (136-145)
[2016-08-05 13:51] LABS: ESTIMATED AVERAGE GLUCOSE 140 mg/dl; HA1C FLAG Normal (Normal)
== END | disposition home or self-care (01) ==
LOC: C.LABPVFM 08:53
PROVIDERS: ATTEND Nurse Practitioner
DX: R53.83 Other fatigue (principal); I10 Essential (primary) hypertension; E11.9 Type 2 diabetes mellitus without complications

== ENCOUNTER → 2016-12-28 | Outpatient (CLI) | payer OTHER ==
--- NOTE | 2016-12-28 15:10 | MAMMOGRAPHY REPORT ---
BILATERAL DIGITAL SCREENING MAMMOGRAM WITH CAD: 12/28/2016 CLINICAL HISTORY: Routine screening. Patient has no complaints. TECHNIQUE: Bilateral CC and MLO views were obtained. Current study was also evaluated with a Compute r Aided Detection (CAD) system. COMPARISON: Comparison is made to exams dated: 12/26/2015 mammogram, 12/23/2014 mammogram, 08/14/2013 m ammogram, 02/12/2013 mammogram, 02/06/2013 mammogram, and 01/26/2012 mammogram - [facility]. BREAST COMPOSITION: The tissue of both breasts is heterogeneously dense, which may obscure small mas ses. FINDINGS: There is a possible small grouping of microcalcifications in the upper outer posterior rig ht breast, for which additional spot magnification views are recommended. There are a few other scattered round and coarse calcifications bilaterally. No other suspicious mass , architectural distortion or cluster of microcalcifications is seen. IMPRESSION: ACR BI-RADS CATEGORY 0: INCOMPLETE EVALUATION: NEED ADDITIONAL IMAGING EVALUATION The possible small grouping of microcalcifications in the right upper outer breast needs additional e valuation. The patient will be called to schedule an appointment. Approximately 10% of breast cancers are not detected with mammography. A negative mammographic report should not delay biopsy if a clinically suggestive mass is present. Kacie Pastor M.D. ay/:12/28/2016 14:58:57 Level Designer: Haven NELSON(R)(M)(BD), [facility] letter sent: Addl Imaging 0 BI-RADS Code: ACR BI-RADS Category 0: Incomplete Evaluation: Need Additional Imaging Evaluation
== END | disposition home or self-care (01) ==
LOC: C.MAMM 09:56
PROVIDERS: ATTEND Nurse Practitioner
DX: Z12.31 Encounter for screening mammogram for malignant neoplasm of breast (principal); R92.0 Mammographic microcalcification found on diagnostic imaging of breast

== ENCOUNTER → 2017-01-04 | Outpatient (CLI) | payer OTHER ==
--- NOTE | 2017-01-04 14:30 | MAMMOGRAPHY REPORT ---
UNILATERAL RIGHT DIGITAL DIAGNOSTIC MAMMOGRAM: 01/04/2017 CLINICAL HISTORY: Callback from screening mammogram for right breast calcifications. TECHNIQUE: Spot magnification right CC and ML views were obtained. COMPARISON: Comparison is made to exams dated: 12/28/2016 mammogram, 12/26/2015 mammogram, 12/23/2014 mammogram, 08/14/2013 mammogram, 02/12/2013 mammogram, and 02/06/2013 mammogram - [facility]. BREAST COMPOSITION: The tissue of the right breast is heterogeneously dense, which may obscure small masses. FINDINGS: Spot magnification views of the right breast demonstrate faint loosely grouped, predominan tly punctate, calcifications within the right upper outer quadrant. The calcifications do not appear significantly changed compared to the 2015 and 2014 exams, and are probably benign given 2 years of stability. An associated coarse benign calcification is also seen within the right upper outer quadr ant. No new clusters of microcalcifications are noted. IMPRESSION: ACR-BI-RADS CATEGORY 3: PROBABLY BENIGN Loosely grouped punctate calcifications in the right upper outer quadrant are likely stable dating ba ck to the December 2014 exam and are therefore probably benign. Recommend follow-up diagnostic tomos ynthesis of the right breast in 6 months to confirm stability on spot magnification views. The patient has been verbally notified of the results. Approximately 10% of breast cancers are not detected with mammography. A negative mammographic report should not delay biopsy if a clinically suggestive mass is present. Malorie Cristina M.D. /:01/04/2017 10:34:27 Load Out Worker: Mei MANRIQUE)(Erna), [facility] letter sent: Follow Up Recommended 3 BI-RADS Code: ACR-BI-RADS Category 3: Probably Benign
== END | disposition home or self-care (01) ==
LOC: C.MAMM 09:03
PROVIDERS: ATTEND Nurse Practitioner
DX: R92.0 Mammographic microcalcification found on diagnostic imaging of breast (principal)

== ENCOUNTER → 2017-02-01 | Outpatient (CLI) | payer OTHER ==
[2017-02-01 13:24] LABS: ESTIMATED AVERAGE GLUCOSE 137 mg/dl; HA1C FLAG Normal (Normal)
[2017-02-01 13:30] LABS: BLOOD UREA NITROGEN 14 mg/dl (7-18); BUN/CREATININE RATIO 21.7 (10-20); CALCIUM 9.3 mg/dl (8.5-10.1); CARBON DIOXIDE 29 mmol/L (21-32); CHLORIDE 102 mmol/L (98-107); CHOLESTEROL 208 mg/dl (0-200); CHOLESTEROL/HDL RATIO 5.2; CREATININE 0.63 mg/dl (0.60-1.20); GLUCOSE 111 mg/dl (70-99); HDL CHOLESTEROL 40 mg/dl; LDL CHOLESTEROL CALCULATED 116 mg/dl; POTASSIUM 4.3 mmol/L (3.5-5.1); SODIUM 136 mmol/L (136-145); TRIGLYCERIDES 258 mg/dl (0-150); VERY LOW DENSITY LIPOPROT CALC 52 mg/dl
[2017-02-01 13:51] LABS: RATIO 15.4 mcg/mg (0-30.0)
== END | disposition home or self-care (01) ==
LOC: C.LABPVFM 08:46
PROVIDERS: ATTEND Nurse Practitioner
DX: E78.5 Hyperlipidemia, unspecified (principal); I10 Essential (primary) hypertension; E11.9 Type 2 diabetes mellitus without complications

== ENCOUNTER → 2017-07-04 | Outpatient (CLI) | payer OTHER ==
--- NOTE | 2017-07-04 15:08 | MAMMOGRAPHY REPORT ---
UNILATERAL RIGHT DIGITAL DIAGNOSTIC MAMMOGRAM TOMOSYNTHESIS WITH CAD: 07/04/2017 CLINICAL HISTORY: 67-year-old woman presents for follow-up in the right breast for a grouping of punc walker microcalcifications in the right upper outer quadrant. TECHNIQUE: Right breast tomosynthesis in addition to standard 2D mammography was performed. Spot ma gnification right CC and ML views were also obtained. Current study was also evaluated with a Comput er Aided Detection (CAD) system. COMPARISON: Comparison is made to exams dated: 01/04/2017 mammogram, 12/28/2016 mammogram, 6 mammogram, 12/23/2014 mammogram, 12/23/2014 ultrasound, and 08/14/2013 mammogram - [facility]. BREAST COMPOSITION: There are scattered areas of fibroglandular density in the right breast. FINDINGS: The glandular pattern is similar to prior mammograms. There are a few benign coarse calci fications in the right breast. There is minimal vascular calcification as well. Again noted are loo sely grouped punctate microcalcifications in the upper outer middle to posterior right breast that ar e unchanged in number and distribution comparing to the spot magnification views obtained on 01/05/20 17, and also likely stable dating back to December 2014, therefore most likely representing benign fi brocystic change. However, another short interval follow-up right diagnostic mammogram including spo t magnification views is recommended to ensure longer stability. IMPRESSION: ACR-BI-RADS CATEGORY 3: PROBABLY BENIGN Stable mammographic appearance of the right breast including loosely grouped punctate micro calcifica tions in the right upper outer quadrant. Another six-month follow-up right diagnostic mammogram incl uding spot magnification views is recommended to ensure longer stability. Annual left mammography wi ll also be due at that time. These results and recommendations were discussed with the patient at the time of the exam. Approximately 10% of breast cancers are not detected with mammography. A negative mammographic report should not delay biopsy if a clinically suggestive mass is present. Kacie Pastor M.D. ay/:07/04/2017 10:06:38 Internist Medical Doctor Md: Elle NELSON(R)(M), [facility] letter sent: Follow Up Recommended 3 BI-RADS Code: ACR-BI-RADS Category 3: Probably Benign
== END | disposition home or self-care (01) ==
LOC: C.MAMM 09:18
PROVIDERS: ATTEND Nurse Practitioner
DX: R92.0 Mammographic microcalcification found on diagnostic imaging of breast (principal)

== ENCOUNTER 2017-09-18 09:05 | Emergency (ER) | payer OTHER ==
[~2017-09-18] VITALS: Ht 152.4 cm; Wt 99.2 kg
[~2017-09-18 09:05] MED LIST changes: -ACET-1138 PO; -AMLO-114 PO; +AMLO10TA3 PO; -CZR50 PO; -HYDC25 PO; +HYDR25TA4 PO; -IBUP-103 PO; +LOSA50TA6 PO; -ULT50X PO
[2017-09-18 09:08] VITALS: TEMP 36.6; Ht 152.4 cm; Wt 99.2 kg
--- NOTE | 2017-09-18 09:48 | EMERGENCY ROOM VISIT NOTE ---
History Report prepared by Phillip: Mirian Buck Under the Supervision of: Dr. Shefali Riddle D.O. First contact with patient: 09:30 Chief Complaint: OTHER COMPLAINT Stated Complaint: HX OF LYMES, WOKE UP WITH SWOLLEN LIPS History of Present Illness The patient is a 67 year old female who presents to the Emergency Room with complaints of a persistent rash on her right low quadrant abdomen that extends across to her left lower quadrant. The patient reports she noticed the rash last night. She notes the rash is itchy. She states she woke up this morning with swollen lips. She also notes "this morning I woke up and the lip of my vagina was bleeding when I wiped myself." She states it feels irritated and itchy. The patient reports she was diagnosed with lyme disease 2 months and she had all of theses symptoms before except the lip swelling. She states she was put on a steroid. She notes her throat is not swollen and she has no difficulty swallowing, breathing, or eating. She states she took Benadryl last night. She denies urinary symptoms, vaginal bleeding, change in bowel movements, abdominal pain, nausea, fever, or chills. The patient states she sometimes has bilateral ankle swelling but notes she is on her feet a lot throughout the day. She denies any change in detergents, personal hygiene products, clothing, or soaps. No other changes in cleaning agents, pets, furniture, or carpet at the house. The patient reports she takes hydrochlorothiazide, losartan, and amlodipine for her blood pressure. Source of History: patient Onset: last night Position: abdomen Quality: other (itchy) Timing: other (persistent) Associated Symptoms: No fevers, No chills, No nausea, No abdominal pain, No urinary symptoms Note: Additional symptoms: lips swollen. Denies: vaginal bleeding, difficulty swallowing, breathing, or eating. Review of Systems See HPI for pertinent positives & negatives. A total of 10 systems reviewed and were otherwise negative. Past Medical & Surgical Medical Problems: (1) Diabetes (2) Right Knee DJD Surgical Problems: (1) Status post right knee replacement Family History Diabetes mellitus Kidney disease Social History Smoking Status: Never Smoker Marital Status: Current/Historical Medications Scheduled Amlodipine (Norvasc), 10 MG PO QAM Hydrochlorothiazide (Hctz), 25 MG PO DAILY Losartan Potassium (Cozaar), 50 MG PO DAILY Metformin Hcl (Glucophage), 500 MG PO DINNER Allergies Coded Allergies: BEE STING (Verified Allergy, Mild, ANAPHYLACTIC, 09/18/17) Oxycodone (Verified Allergy, Mild, N/V, 09/18/17) Procaine (Verified Adverse Reaction, Mild, HYPERACTIVITY, 09/18/17) Physical Exam Vital Signs Date Time Temp Pulse Resp B/P (MAP) Pulse Ox O2 Delivery O2 Flow Rate FiO2 09/18/17 12:57 80 20 129/71 97 09/18/17 11:27 78 18 145/74 95 Room Air 09/18/17 09:08 36.6 83 18 152/82 95 Room Air Physical Exam GENERAL: alert, well appearing, well nourished, no distress, non-toxic EYE EXAM: normal conjunctiva, PERRL and EOM's grossly intact. No scleral injection, no conjunctivitis, no periorbital edema. OROPHARYNX: no exudate, no erythema, buccal mucosa, and tongue normal and mucous membranes are moist. Mild edema to the upper lip, no other facial swelling. No tongue swelling, no uvular edema. Uvula midline. NECK: supple, no nuchal rigidity, no adenopathy, non-tender. No strider. LUNGS: Clear to auscultation. Normal chest wall mechanics. No wheezes, rhonchi, or rales. HEART: no murmurs, S1 normal and S2 normal ABDOMEN: abdomen soft, non-tender, normo-active bowel sounds, no masses, no rebound or guarding. BACK: Back is symmetrical on inspection and there is no deformity, no midline tenderness, no CVA tenderness. SKIN: Scattered patchy maculopapular erythematous rash to the lower abdomen bilaterally extending out toward the flank, no vesicles, no sloughing, no bullae , no petechiae, no central clearing to lesions. No other rash noted. No facial rash. UPPER EXTREMITIES: upper extremities are grossly normal. No joint effusions, full range of motion. LOWER EXTREMITIES: No pitting edema. No joint effusions, full range of motion. NEURO EXAM: Normal sensorium, cranial nerves II-XII grossly intact, normal speech, no gross weakness of arms, no gross weakness of legs. Medical Decision & Procedures Laboratory Results 09/18/17 10:15 Red Blood Count 4.81, Mean Corpuscular Volume 83.4, Mean Corpuscular Hemoglobin 27.4, Mean Corpuscular Hemoglobin Concent 32.9, Mean Platelet Volume 10.7, Neutrophils (%) (Auto) 64.4, Lymphocytes (%) (Auto) 22.4, Monocytes (%) (Auto) 9.3, Eosinophils (%) (Auto) 2.9, Basophils (%) (Auto) 0.6, Neutrophils # (Auto) 4.52, Lymphocytes # (Auto) 1.57, Monocytes # (Auto) 0.65, Eosinophils # (Auto) 0.20, Basophils # (Auto) 0.04 09/18/17 10:15 Test 09/18/17 09:50 09/18/17 10:15 Urine Color YELLOW Urine Appearance CLEAR (CLEAR) Urine pH 5.0 (4.5-7.5) Urine Specific [place] 1.016 (1.000-1.030) Urine Protein NEG (NEG) Urine Glucose (UA) NEG (NEG) Urine Ketones NEG (NEG) Urine Occult Blood TRACE (NEG) Urine Nitrite NEG (NEG) Urine Bilirubin NEG (NEG) Urine Urobilinogen NEG (NEG) Urine Leukocyte Esterase NEG (NEG) Urine WBC (Auto) 1-5 /hpf (0-5) Urine RBC (Auto) 0-4 /hpf (0-4) Urine Hyaline Casts (Auto) 1-5 /lpf (0-5) Urine Epithelial Cells (Auto) 20-30 /lpf (0-5) Urine Bacteria (Auto) NEG (NEG) White Blood Count 7.01 K/uL (4.8-10.8) Red Blood Count 4.81 M/uL (4.2-5.4) Hemoglobin 13.2 g/dL (12.0-16.0) Hematocrit 40.1 % (37-47) Mean Corpuscular Volume 83.4 fL (80-100) Mean Corpuscular Hemoglobin 27.4 pg (25-34) Mean Corpuscular Hemoglobin Concent 32.9 g/dl (32-36) Platelet Count 317 K/uL (130-400) Mean Platelet Volume 10.7 fL (7.4-10.4) Neutrophils (%) (Auto) 64.4 % Lymphocytes (%) (Auto) 22.4 % Monocytes (%) (Auto) 9.3 % Eosinophils (%) (Auto) 2.9 % Basophils (%) (Auto) 0.6 % Neutrophils # (Auto) 4.52 K/uL (1.4-6.5) Lymphocytes # (Auto) 1.57 K/uL (1.2-3.4) Monocytes # (Auto) 0.65 K/uL (0.11-0.59) Eosinophils # (Auto) 0.20 K/uL (0-0.5) Basophils # (Auto) 0.04 K/uL (0-0.2) RDW Standard Deviation 44.0 fL (36.4-46.3) RDW Coefficient of Variation 14.4 % (11.5-14.5) Immature Granulocyte % (Auto) 0.4 % Immature Granulocyte # (Auto) 0.03 K/uL (0.00-0.02) Anion Gap 7.0 mmol/L (3-11) Est Creatinine Clear Calc Drug Dose 75.9 ml/min Estimated GFR () 95.8 Estimated GFR (Non- 82.7 BUN/Creatinine Ratio 20.0 (10-20) Calcium Level 9.3 mg/dl (8.5-10.1) Magnesium Level 1.9 mg/dl (1.8-2.4) Total Bilirubin 0.6 mg/dl (0.2-1) Aspartate Amino Transf (AST/SGOT) 27 U/L (15-37) Alanine Aminotransferase (ALT/SGPT) 34 U/L (12-78) Alkaline Phosphatase 66 U/L (45-117) Total Protein 7.3 gm/dl (6.4-8.2) Albumin 3.8 gm/dl (3.4-5.0) Globulin 3.5 gm/dl (2.5-4.0) Albumin/Globulin Ratio 1.1 (0.9-2) Chemistry Specimen Hemolysis Lyme Disease IgG Antibody NEG (NEG) Laboratory results per my review. Medications Administered Medications (Trade) Dose Ordered Sig/Emile Route Start Time Stop Time Status Last Admin Dose Admin Dexamethasone Sodium Phosphate (Dexamethasone Inj Pf) 10 mg NOW ONCE PO 09/18/17 10:15 09/18/17 10:16 DC 09/18/17 10:24 10 MG Diphenhydramine HCl (Benadryl Inj) 25 mg NOW STAT IV 09/18/17 11:22 09/18/17 11:24 DC 09/18/17 11:26 25 MG ED Course 0930: The patient was evaluated in room B10. A complete history and physical exam was performed. 1015: Ordered Dexamethasone Sodium Phosphate 10 mg PO. 1110: I rechecked the patient. There is no change in size of swelling of upper lip but she now ahs mild bilateral fullness noted to lower face. 1122: Ordered Benadryl Cap 25 mg IV. 1230: Upon reevaluation, the patient is feeling better. I discussed the findings and the treatment plan with the patient. She verbalizes agreement and understanding. She was discharged home. Medical Decision Differential diagnosis: Etiologies such as allergic reaction, anaphylaxis, urticaria, Ramirez-Rupesh syndrome, toxic epidermal necrolysis, erythema multiforme, cellulitis, as well as others were entertained. Patient well-appearing here despite complaints. No evidence of airway compromise or respiratory distress. No evidence of anaphylaxis. Discussed with her possible differential diagnosis including environmental reaction, food reaction, medication reaction. Patient improved here following administration of Benadryl. Patient given 1 dose of Decadron supposed to not greatly alter her blood sugar given her history of diabetes. Discussed with patient close follow-up with her family doctor, symptoms to watch and return for, she verbalized understanding was agreeable with plan. I offered to perform a pelvic exam due to patient's initial complaint of possible labial irritation or bleeding. Patient declined. Discussed with her possible differential diagnosis of this and advised close follow-up with her family doctor ORDER PACKER since she was uncomfortable having us investigate this complaint also. I am less suspicious of Lyme's disease despite patient's history. She is at risk for potential infection given our endemic area. Last Lyme's test only had 2 positive bands and therefore is unlikely to be a true positive. I did discuss this with the patient. A repeat Lyme was sent today as well as an Ehrlichia given the atypical presentation and endemic area for tickborne illness. Patient aware these labs will take several days to result and she will receive a phone call if they are positive. No other evidence of systemic Lyme's disease. Medication Reconcilliation Current Medication List: was personally reviewed by me Blood Pressure Screening Patient's blood pressure: Elevated blood pressure Blood pressure disposition: Elevated BP felt to be situational Impression Primary Impression: Allergic reaction Additional Impression: Rash Scribe Attestation The scribe's documentation has been prepared under my direction and personally reviewed by me in its entirety. I confirm that the note above accurately reflects all work, treatment, procedures, and medical decision making performed by me. Departure Information Dispostion Home / Self-Care Referrals Susanna Ryan C.R.N.P (PCP) Patient Instructions My [facility] Additional Instructions You may continue taking Benadryl every 6-8 hours to help with the rash and itching as well as the swelling of your lip. Please call your family doctor tomorrow to discuss your medications and have them recheck you this coming week. It is possible that your losartan could have caused an allergic reaction but this is less common. Several of the labs we sent her knee today are still pending and will take 2-3 days to result. If they are positive you will receive a phone call. Please continue checking your blood sugar daily. The dose of steroids you received here may elevate your blood sugars over the next several days. If you develop any worsening rash, blistering or weeping of the rash, trouble breathing, increased swelling of your lips, swelling of your face or tongue, trouble breathing, speaking, or swallowing, abdominal pain, if the rash appears to be spreading anywhere else, you have any other new concerns, please return the emergency room. Problem Qualifiers Primary Impression: Allergic reaction Encounter type: initial encounter Qualified Codes: T78.40XA - Allergy, unspecified, initial encounter
[2017-09-18] MEDS ORDERED: DEXAMETHASONE **PF** INJ 10 MG/ML VIAL PO ONE (10:15)
[2017-09-18 10:30] LABS: BASO % 0.6 %; BASO ABS # 0.04 K/uL (0-0.2); EOS % 2.9 %; HEMATOCRIT 40.1 % (37-47); HEMOGLOBIN 13.2 g/dL (12.0-16.0); IG# 0.03 K/uL (0.00-0.02); LYMPH % 22.4 %; LYMPH ABS # 1.57 K/uL (1.2-3.4); MEAN CELL VOLUME 83.4 fL (80-100); MEAN CORPUSCULAR HEMOGLOBIN 27.4 pg (25-34); MEAN CORPUSCULAR HGB CONC 32.9 g/dl (32-36); MEAN PLATELET VOLUME 10.7 fL (7.4-10.4); MONO % 9.3 %; MONO ABS # 0.65 K/uL (0.11-0.59); NEUT % 64.4 %; NEUT ABS # 4.52 K/uL (1.4-6.5); PLATELET COUNT 317 K/uL (130-400); RED CELL DISTRIBUTION WIDTH CV 14.4 % (11.5-14.5); WHITE BLOOD COUNT 7.01 K/uL (4.8-10.8)
[2017-09-18 10:48] LABS: ALBUMIN 3.8 gm/dl (3.4-5.0); CALCIUM 9.3 mg/dl (8.5-10.1); CREATININE 0.74 mg/dl (0.60-1.20); TOTAL PROTEIN 7.3 gm/dl (6.4-8.2)
[2017-09-18 10:59] LABS: POTASSIUM 3.7 mmol/L (3.5-5.1)
[2017-09-18] MEDS ORDERED: DiphenhydrAMINE HCL 50 MG/ML VIAL IV STA (11:22)
[2017-09-18 12:57] VITALS: BP 129/71; PULSE 80; O2SAT 97
== END 2017-09-18 12:59 | disposition home or self-care (01) ==
LOC: C.EDB 09:06
DX: T78.40XA Allergy, unspecified, initial encounter (principal); X58.XXXA Exposure to other specified factors, initial encounter; E11.9 Type 2 diabetes mellitus without complications; Z79.84 Long term (current) use of oral hypoglycemic drugs; Z79.899 Other long term (current) drug therapy; Z91.030 Bee allergy status; Z88.6 Allergy status to analgesic agent; Z88.0 Allergy status to penicillin

== ENCOUNTER → 2017-09-23 | Outpatient (CLI) | payer OTHER ==
[~2017-09-23] MED LIST changes: -ASPEC325 PO
--- NOTE | 2017-09-23 10:54 | DIAGNOSTIC IMAGING REPORT ---
KUB CLINICAL HISTORY: 67 years-old Female presenting with Acute flank pain Abdominal pain Urinary frequency. TECHNIQUE: Single supine view of the abdomen was obtained. COMPARISON: 08/11/2017. FINDINGS: Nonobstructive bowel gas pattern. No gross pneumoperitoneum. The liver shadow may be enlarged. Allowing for bowel gas and stool, no calcifications to suggest nephrolithiasis. No radiographic evidence of ureteral calculi. Few calcifications in the pelvis likely phleboliths. Degenerative changes of the spine. IMPRESSION: 1. No acute intra-abdominal pathology. No radiographic evidence of renal or ureteral calculi. If there is continuing clinical concern, CT to be obtained. 2. Possible hepatomegaly though apparent liver enlargement may be due to magnification related to technique. Electronically signed by: Stanislaw Fox M.D. 09/23/2017 10:53 AM Dictated Date/Time: 09/23/2017 10:51 AM
== END | disposition home or self-care (01) ==
LOC: C.RADPV 10:25
PROVIDERS: ATTEND Family Medicine
DX: R10.9 Unspecified abdominal pain (principal); R35.0 Frequency of micturition

== ENCOUNTER 2018-12-12 11:34 | Inpatient (IN) ==
[2018-12-04 13:01] LABS: Basophils # (auto) 0.07 K/uL (0-0.2); Basophils % (auto) 0.6 %; Eosinophils # (auto) 0.23 K/uL (0-0.5); Eosinophils % (auto) 1.9 %; Hematocrit (blood only) 39.4 % (37-47); Immature Granulocytes # (auto) 0.06 K/uL (0.00-0.02); Immature Granulocytes % (auto) 0.5 %; Lymphocytes % (auto) 16.3 %; Mean Corpuscular Hemoglobin 27.5 pg (25-34); Mean Corpuscular Volume 83.5 fL (80-100); Mean Platelet Volume 10.9 fL (7.4-10.4); Monocytes # (auto) 1.35 K/uL (0.11-0.59); Neutrophils # (auto) 8.58 K/uL (1.4-6.5); Neutrophils % (auto) 69.7 %; Platelet Count 416 K/uL (130-400); RDW Coefficient of Variation 14.5 % (11.5-14.5); RDW Standard Deviation 44.1 fL (36.4-46.3); Red Blood Count 4.72 M/uL (4.2-5.4); White Blood Count 12.29 K/uL (4.8-10.8)
[2018-12-04 13:17] LABS: Partial Thromboplastin Time 26.2 Seconds (21.0-31.0); Prothrombin Time 10.3 Seconds (9.0-12.0)
[2018-12-04 13:26] LABS: BUN Creatinine Ratio 18.3 (10-20); Blood Urea Nitrogen 11 mg/dl (7-18); Calcium 9.1 mg/dl (8.5-10.1); Carbon Dioxide 29 mmol/L (21-32); Chloride 98 mmol/L (98-107); Est GFR (African American) 107.6; Est GFR (Non-African American) 92.9; Glucose 122 mg/dl (70-99); Potassium 3.4 mmol/L (3.5-5.1); Sodium 133 mmol/L (136-145)
[2018-12-04 13:40] LABS: Estimated Average Glucose 166 mg/dl; Hemoglobin A1C 7.4 % (4.5-5.6)
--- NOTE | 2018-12-06 12:47 | Anesthesiology Consultation ---
Date of Service December 06, 2018 Assessment & Plan (1) Encounter for pre-operative examination: Chart Review Chart Review: Acceptable Risk for Surgery and Patient NOT seen in Pre Admission Testing .Pt with cardiomegaly on CXR. No signs of acute process. Pt was injured while walking her dog. Normal EKG. No previous History of disease History Surgery Operation Date: 12/12/18 14:00 Proposed Procedures p Left Reverse Total Shoulder Arthroplasty - Olu Olvera DO Height/Weight Height: 5 ft 5 in Weight: 90.718 kg Allergies Allergy/AdvReac Type Severity Reaction Status Date / Time bee venom protein (honey bee) Allergy Severe ANAPHYLACTI Verified 12/05/18 15:03 C oxycodone Allergy Mild N/V Verified 12/05/18 15:03 procaine AdvReac Intermediate HYPERACTIVE Verified 12/05/18 15:03 Medications Home Medications Medication Instructions Recorded Confirmed Last Taken atorvastatin 10 mg tablet 10 mg PO QPM #1 tab 07/05/18 12/05/18 Unknown hydrochlorothiazide 25 mg tablet 25 mg PO QAM #90 tab 08/10/18 12/05/18 Unknown metformin ER 500 mg 500 mg PO QPM tab 08/10/18 12/05/18 Unknown tablet,extended release 24 hr amlodipine 10 mg PO QAM 12/05/18 12/05/18 Unknown losartan 50 mg PO QAM 12/05/18 12/05/18 Unknown Past Medical History Medical History Hypertension (Chronic) Cardiac murmur HX OF Diabetes mellitus, type 2 Hyperlipidemia Kidney stones Osteoarthritis Past Family History Family History Father Coronary heart disease Past Surgical History Surgical History Family history of reaction to anesthesia SISTER-VERY SLOW TO WAKE UP. History of appendectomy History of hysterectomy History of tonsillectomy History of tooth extraction History of total knee replacement RT/LEFT Pilonidal cyst REMOVED Social History Smoking Status: Never smoker Do You Dip or Chew Tobacco: No Hx Alcohol Use: No Hx Substance Use: No substance use type: does not use Testing Laboratory Results 12/04/18 11:58 12/04/18 11:58 PT 10.3 Seconds (9.0-12.0) 12/04/18 11:58 INR 1.0 (0.9-1.1) 12/04/18 11:58 APTT 26.2 Seconds (21.0-31.0) 12/04/18 11:58 Hemoglobin A1c 7.4 % (4.5-5.6) H 12/04/18 11:58 Blood Type O Positive 12/04/18 11:59 Antibody Screen NEGATIVE 12/04/18 11:59 Electrocardiogram Date: 12/04/18 Findings: + NSR @ (86 bpm) Chest X-Ray Date: 12/04/18 1. Cardiomegaly. No other convincing evidence of acute cardiopulmonary disease. 2. Mildly displaced subacute fracture of the left humeral neck.
--- NOTE | 2018-12-11 07:49 | History & Physical Report ---
Date of Service December 11, 2018 Assessment & Plan (1) Closed 4-part fracture of proximal end of left humerus: We will proceed with a fracture reverse left shoulder arthroplasty. Postoperatively she will be placed in a sling and kept overnight in the hospital for postoperative medical management. She plans to go home upon discharge. Present on Admission?: Yes History of Present Illness Chief Complaint: Four-part left proximal humerus fracture Primary Care Provider: JAYA Silver Andreina is a pleasant 68-year-old female who was walking her dog a week ago when she tripped and fell onto her left shoulder. X-rays and clinical examination were diagnostic for a displaced left four-part proximal humerus fracture. After discussions in the office, she has elected to proceed with a fracture reverse left shoulder arthroplasty. Allergies Allergy/AdvReac Type Severity Reaction Status Date / Time bee venom protein (honey bee) Allergy Severe ANAPHYLACTI Verified 12/05/18 15:03 C oxycodone Allergy Mild N/V Verified 12/05/18 15:03 procaine AdvReac Intermediate HYPERACTIVE Verified 12/05/18 15:03 Home Medications Home Medications Medication Instructions Recorded Confirmed Type atorvastatin 10 mg tablet 10 mg PO QPM #1 tab 07/05/18 12/05/18 History hydrochlorothiazide 25 mg tablet 25 mg PO QAM #90 tab 08/10/18 12/05/18 History metformin ER 500 mg 500 mg PO QPM tab 08/10/18 12/05/18 History tablet,extended release 24 hr amlodipine 10 mg PO QAM 12/05/18 12/05/18 History losartan 50 mg PO QAM 12/05/18 12/05/18 History Past Med/Surg History Medical History Hypertension (Chronic) Cardiac murmur HX OF Diabetes mellitus, type 2 Hyperlipidemia Kidney stones Osteoarthritis Surgical History Family history of reaction to anesthesia SISTER-VERY SLOW TO WAKE UP. History of appendectomy History of hysterectomy History of tonsillectomy History of tooth extraction History of total knee replacement RT/LEFT Pilonidal cyst REMOVED Family History Father Coronary heart disease Social History (Reviewed 12/01/18 @ 17:36 by Dennis Jimenes Preferred Language: Nepali Communication Ability: Effective Landscape Maintenance Internship Required: No Beliefs That Will Affect Care: None marital status: Current Living Situation: Spouse Feels Safe at Home: Yes Smoking Status: Never smoker Second Hand Exposure: No ; Hx Alcohol Use: No Hx Substance Use: No caffeine: Yes Seatbelt Use: always Review of Systems All systems reviewed & are unremarkable except as noted in HPI & below Physical Exam Musculoskeletal: On physical examination of the left shoulder, she was wearing a left arm sling. Her radial, median, and ulnar nerves are checked and intact at her wrist. Her axillary nerve was not definitively checked yet. She had lateral sensation around the deltoid. I did not do any range of motion testing to her left shoulder. Results & Data Diagnostic Findings X-rays of the left shoulder show a displaced left four-part proximal humerus fracture.
[~2018-12-12 11:34] MED LIST changes: +ACETAMINOPHEN 500 MG TAB PO SCH; -AMLO10TA3 PO; +BUPIVACAINE 0.5 % 5 MG/1 ML PF 10ML VIAL ONE; +CEFAZOLIN 2000MG 2,000 MG/15 ML SYR IV SCH; +FAMOTIDINE 20 MG TAB PO SCH; +GABAPENTIN 300 MG CAP PO SCH; -GLC/500 PO; -HYDR25TA4 PO; -LOSA50TA6 PO; +LR 15ML/HR IV SCH; +LR 60ML/HR IV SCH; +TRANEXAMIC ACID 1,000 MG **IV Intra-op IV SCH; +TRANEXAMIC ACID 1,000 MG **IV Pre-op IV SCH
[2018-12-12] MEDS ORDERED: fentaNYL citrate 100 MCG/2 ML VIAL ONE (12:34)
[2018-12-12] MEDS ORDERED: MIDAZOLAM HCL 1 MG/ML 2ML VIAL ONE (12:34)
--- NOTE | 2018-12-12 12:40 | History & Physical Bridge Note ---
Date of Service December 12, 2018 History & Physical Bridge Note I have examined the patient, reviewed the History & Physical and in the interval since the performance of the History & Physical I have noted the following changes of clinical significance: no changes noted
[2018-12-12] MEDS ORDERED: NEOSTIGMINE METHYLSULFATE 5 MG/5 ML SYR ONE (13:27)
[2018-12-12] MEDS ORDERED: PROPOFOL IV EMULSION 10 MG/ML 20 ML VIAL IV ONE (13:27)
[2018-12-12] MEDS ORDERED: ONDANSETRON INJ 2 MG/ML 2 ML VIAL ONE (13:27)
[2018-12-12] MEDS ORDERED: ROCURONIUM BROMIDE 10 MG/ML 5 ML VIAL ONE (13:28)
[2018-12-12] MEDS ORDERED: GLYCOPYRROLATE 0.2 MG/ML VIAL ONE (13:28)
[2018-12-12] MEDS ORDERED: LIDOCAINE HCL 2% 2 ML VIAL/AMP(20MG/ML) INFIL ONE (13:28)
[2018-12-12] MEDS ORDERED: ONDANSETRON INJ 2 MG/ML 2 ML VIAL IV PRN ×2 (14:17→18:31)
[2018-12-12] MEDS ORDERED: ePHEDrine sulfate 50 MG/ML AMP IV PRN (14:17)
[2018-12-12] MEDS ORDERED: HYDROmorphone INJ 1 MG/ML SYRINGE IV PRN (14:17)
[2018-12-12] MEDS ORDERED: ATROPINE SULFATE 0.1 MG/ML 10ML SYR IV PRN (14:17)
[2018-12-12] MEDS ORDERED: fentaNYL citrate 100 MCG/2 ML VIAL IV PRN (14:17)
--- NOTE | 2018-12-12 16:53 | Operative Report ---
Post Operative Report Pre & Post Diagnosis Operation Date: 12/12/18 14:20 Pre-Op Diagnosis: Displaced 4 part left proximal humerus fracture Post-Op Diagnosis: Displaced four-part left proximal humerus fracture I identified the patient and participated in the time-out.: Yes Procedure Operation Date: 12/12/18 14:20 Actual Procedures p Left fracture reverse Total Shoulder Arthroplasty(Left) - Olu Olvera DO Surgeon Olu Olvera, Skate Maker Olu Virk PAC Estimated Blood Loss 300 Findings Consistent with Post-Op Diagnosis Specimens Left humeral head Complications none Disposition Disposition: Recovery Room Indications Patient is a pleasant 68-year-old female who fell a week ago while walking her dog. She sustained a displaced four-part left proximal humerus fracture. After discussions in the office, she elected to proceed with a fracture reverse left shoulder arthroplasty. Description of Procedure Implants used: I used a [employer]omet Comprehensive fracture reverse total shoulder arthroplasty system with a size 8 press fit fracture humeral stem, a +5 humeral tray and a standard humeral bearing, a 25 mm mini baseplate with a 6.5 mm central screw and superior and inferior locking screws, and a size 36 mm eccentric glenosphere. The patient arrived at [facility] for the above procedure. There were seen in the preoperative holding area and the operative extremity was identified and signed. They were given a preoperative antibiotic and an interscalene nerve block. They were taken back to the operating room, laid on table in supine position, and put under general anesthesia. They were then put into the beachchair position. The shoulder was then prepped and draped in sterile fashion. A timeout was done and the patient and the operative extremity was properly identified. A deltopectoral approach was used. Dissection was taken down through the fascia and the deltoid was retracted laterally and the conjoined tendon was retracted medially. The anterior shoulder was exposed. The long head of the biceps tendon was tenodesed to the upper border of the pectoralis major. The greater tuberosity and lesser tuberosity fragments were released from the humeral head and tagged with #5 FiberWire suture. The humeral head was then removed. The glenoid guide was then placed in the inferior aspect of the glenoid. A 3.2 mm Steinmann pin was then placed into the glenoid vault at 10 of inclination. The glenoid baseplate was then reamed. The final size 25 mm mini baseplate was then impacted in the place. A 6.5 mm central screw was then placed followed by superior and inferior locking screws. A 36 mm eccentric glenoid sphere was then impacted into place. The proximal humerus was then exposed. Sequential reaming up to a size 8 reamer was done. A trial fracture stem was then impacted into place and 20 degrees of retroversion. Off that trial a +5 humeral tray was trialed. The shoulder was then reduced, brought through a full range of motion and felt to be stable. The shoulder was then dislocated and the trial was removed. The final size 8 press-fit fracture humeral stem was then impacted into place. A standard humeral bearing was then snapped onto a +5 humeral tray. The humeral tray was then impacted onto the humeral stem. The shoulder was once again reduced, brought through a full range of motion and felt to be stab le. The greater tuberosity and lesser tuberosity fragments were tied around the prosthesis. A total of six #5 FiberWire sutures were used to reduce the tuberosities in time to the prosthesis. The sutures went through the suture holes of the prosthesis as well as around the neck of the prosthesis. I was very happy with the overall reduction. Some #2 fiber wires were also placed in the rotator interval. A dilute betadyne lavage was then done for 3 minutes. The joint was then irrigated with normal saline solution. Hemostasis was obtained. The skin was then closed with 2-0 Vicryl, 3-0V lock suture, and jovani. A soft dressing and a regular arm sling was placed. The patient was then extubated and transferred to a hospital bed. They were taken to the postanesthesia care unit in stable condition. They tolerated the procedure well. I attest to the content of the Intraoperative Record and any orders documented therein. Any exceptions are noted below.
--- NOTE | 2018-12-12 17:37 | Anesthesiology Progress Note ---
Date of Service December 12, 2018 Anesthesia Post Procedure Vital Signs Vital Signs: Temp Pulse Pulse Resp BP Pulse Ox 12/12/18 17:22 36.5 C 74 16 136/72 99 12/12/18 11:57 36.7 C 80 18 176/84 H 96 Pain Intensity Left Shoulder: Pain Intensity: 0 Transfer of Care Handoff Completed per policy Notes Mental Status: alert / awake / arousable and participated in evaluation Patient Amnestic to Procedure: Yes Nausea / Vomiting: adequately controlled Pain: adequately controlled Airway Patency, RR, SpO2: stable & adequate BP & HR: stable & adequate Hydration State: stable & adequate Anesthetic Complications: no major complications apparent and Pt Satisfied with anesthetic care
--- NOTE | 2018-12-12 17:47 | XRay Report ---
XR shoulder LT min 2V routine CLINICAL HISTORY: Post shoulder surgery COMPARISON: 12/01/2018 DISCUSSION: There are postsurgical changes of a total left shoulder arthroplasty. There is no disloca tion. A greater tuberosity fracture fragment is again visualized. Overlying skin jovani are evident. IMPRESSION: Postsurgical changes of a total left shoulder arthroplasty. No evidence of dislocation. Electronically signed by: Jimbo Good M.D. 12/12/2018 5:46 PM
[2018-12-12] MEDS ORDERED: BISACODYL 10 MG SUPP PR PRN (18:31)
[2018-12-12] MEDS ORDERED: MAGNESIUM HYDROXIDE SUSP 30 ML UDC PO PRN (18:31)
[2018-12-12] MEDS ORDERED: HYDROmorphone INJ 0.5 MG/0.5 ML SYR IV PRN (18:31)
[2018-12-12] MEDS ORDERED: METOCLOPRAMIDE HCL INJ 5 MG/ML 2 ML VIAL IV PRN (18:31)
[2018-12-12] MEDS ORDERED: TRAMADOL HCL 50 MG TABLET PO PRN (18:31)
[2018-12-12] MEDS ORDERED: NALOXONE HCL 0.4 MG/1 ML VIAL/CARP IV PRN (18:31)
[2018-12-12] MEDS ORDERED: GLUCAGON FOR INJ 1 MG VIAL IM PRN (18:45)
[2018-12-12] MEDS ORDERED: GLUCOSE 40% GEL 15 GM TUBE PO PRN (18:45)
[2018-12-12] MEDS ORDERED: CARBOHYDRATES FOR HYPOGLYCEMIA PO PRN (18:45)
[2018-12-12] MEDS ORDERED: DEXTROSE 50% 50 ML SYRINGE IV PRN (18:45)
[2018-12-12] MEDS ORDERED: GLUCOSE 10 TABS/TUBE PO PRN (18:45)
[2018-12-12] MEDS ORDERED: PHARMACY GLYCEMIC MGMT CONSULT PRN (18:45)
[2018-12-12] MEDS: INSULIN ASPART 100 UNITS/ML 3 ML PEN SC SCH (20:17)
[2018-12-12] MEDS: KETOROLAC TROMETHAMINE 15 MG/ML VIAL IV SCH (20:24)
[2018-12-12] MEDS: DOCUSATE SODIUM 100 MG CAP PO SCH (20:25)
[2018-12-12] MEDS ORDERED: HydrALAZINE 10 MG TAB PO PRN (20:53)
[2018-12-12] MEDS ORDERED: SENNA 8.6 MG TAB PO SCH (21:00)
[2018-12-12] MEDS ORDERED: ATORVASTATIN 10 MG TAB PO SCH (21:00)
[2018-12-12] MEDS ORDERED: LANTUS PER UNIT CHARGE SQ SCH (21:00)
[2018-12-12] MEDS: CEFAZOLIN 2000MG 2,000 MG/15 ML SYR IV SCH (21:32)
[2018-12-12] MEDS: ACETAMINOPHEN 500 MG TAB PO SCH (21:32)
[2018-12-12] MEDS: SODIUM CHLORIDE 0.9% 1000ML 1,000 ML IV SCH (21:40)
[2018-12-13] MEDS: KETOROLAC TROMETHAMINE 15 MG/ML VIAL IV SCH ×2 (02:29→08:37)
[2018-12-13 05:25] LABS: Basophils # (auto) 0.05 K/uL (0-0.2); Basophils % (auto) 0.4 %; Eosinophils # (auto) 0.16 K/uL (0-0.5); Eosinophils % (auto) 1.2 %; Hematocrit (blood only) 32.8 % (37-47); Hemoglobin 10.8 g/dL (12.0-16.0); Immature Granulocytes # (auto) 0.08 K/uL (0.00-0.02); Immature Granulocytes % (auto) 0.6 %; Lymphocytes # (auto) 1.77 K/uL (1.2-3.4); Lymphocytes % (auto) 13.2 %; Mean Corpuscular Hemoglobin 27.4 pg (25-34); Mean Corpuscular Hgb Conc 32.9 g/dL (32-36); Mean Corpuscular Volume 83.2 fL (80-100); Mean Platelet Volume 9.7 fL (7.4-10.4); Monocytes # (auto) 1.26 K/uL (0.11-0.59); Monocytes % (auto) 9.4 %; Neutrophils # (auto) 10.04 K/uL (1.4-6.5); Neutrophils % (auto) 75.2 %; Platelet Count 377 K/uL (130-400); RDW Coefficient of Variation 14.5 % (11.5-14.5); RDW Standard Deviation 44.9 fL (36.4-46.3); Red Blood Count 3.94 M/uL (4.2-5.4); White Blood Count 13.36 K/uL (4.8-10.8)
[2018-12-13] MEDS: CEFAZOLIN 2000MG 2,000 MG/15 ML SYR IV SCH (05:52)
[2018-12-13] MEDS: ACETAMINOPHEN 500 MG TAB PO SCH (05:52)
[2018-12-13 05:56] LABS: BUN Creatinine Ratio 17.7 (10-20); Calcium 8.6 mg/dl (8.5-10.1); Creatinine Clr Calc Pharmacy 106.7 ml/min; Est GFR (African American) 109.5; Est GFR (Non-African American) 94.5; Potassium 3.6 mmol/L (3.5-5.1)
--- NOTE | 2018-12-13 06:11 | Orthopedic Progress Note ---
Date of Service December 13, 2018 Assessment & Plan (1) Closed 4-part fracture of proximal end of left humerus: Overall she is doing fairly well. She will be seen by physical therapy this morning for her hand wrist and elbow exercises. She can be discharged home later today. She will follow-up with orthopedics in 2 weeks. Present on Admission?: Yes Subjective Andreina was seen and examined at bedside this morning. Overall she is doing very well. She is not having much pain in the left shoulder. She was able to get some sleep last night. She has no complaints. Physical Exam Musculoskeletal: On physical examination of the left shoulder, the dressing is clean and dry. She is wearing her sling as instructed. Her radial, median, and ulnar nerves are checked and intact at the wrist. Her axillary nerve was not checked yet. Results & Data Vital Signs (Past 12 Hours) Vital Signs Temp Pulse Resp BP Pulse Ox 12/13/18 02:34 37.1 C 79 15 149/88 H 95 12/12/18 23:58 36.6 C 81 16 137/76 95 12/12/18 21:29 36.7 C 91 H 24 127/71 96 12/12/18 20:29 36.7 C 86 18 151/71 H 96 12/12/18 19:19 36.2 C L 88 24 152/79 H 97 12/12/18 18:57 36.7 C 86 18 131/76 95 12/12/18 18:25 36.5 C 76 16 136/79 95 Laboratory Results H & H 12/04/18 12/13/18 Range/Units 11:58 04:39 Hgb 13.0 10.8 L (12.0-16.0) g/dL Hct 39.4 32.8 L (37-47) % Coagulation 12/04/18 Range/Units 11:58 INR 1.0 (0.9-1.1) Diagnostic Findings Postop x-rays of the left shoulder show the prosthesis to be in anatomic alignment. The tuberosity is well reduced. PG Care Time/CCT Total # of Minutes Spent Total Time Spent with Patient: Total time spent is greater than 50% in coordination of care (as documented) at patient's floor/unit and/or counseling patient:
--- NOTE | 2018-12-13 06:12 | Discharge Summary ---
Date of Service December 13, 2018 Admission HPI Per Admitting Provider Andreina is a pleasant 68-year-old female who was walking her dog a week ago when she tripped and fell onto her left shoulder. X-rays and clinical examination were diagnostic for a displaced left four-part proximal humerus fracture. After discussions in the office, she has elected to proceed with a fracture reverse left shoulder arthroplasty. Principal Diagnosis Left fracture reverse shoulder arthroplasty Discharge Data Allergies Allergy/AdvReac Type Severity Reaction Status Date / Time bee venom protein (honey bee) Allergy Severe ANAPHYLACTI Verified 12/12/18 11:55 C oxycodone Allergy Mild N/V Verified 12/12/18 11:55 procaine AdvReac Intermediate HYPERACTIVE Verified 12/12/18 11:55 Consultations 12/12/18 18:31 Consult Case Management - Discharge Planning Routine Procedures Performed Operation Date: 12/12/18 14:20 Actual Procedures p Left Reverse Total Shoulder Arthroplasty(Left) - Olu Olvera DO Ordered Studies 12/12/18 05:00 US - OR guided needle placemen Routine 12/12/18 14:07 US - OR guided needle placemen Routine Hospital Course (1) Closed 4-part fracture of proximal end of left humerus: On December 12, 2018 Andreina arrived at [facility] and underwent a left fracture reverse shoulder arthroplasty without complication. She had a general anesthetic and a left interscalene nerve block. Postoperatively she was placed in a sling and discharged to general orthopedic floors. On postop day #1 her H&H was stable and her pain was well controlled. She was able to participate well with physical therapy. She was then discharged to home. She will not start physical therapy for 6 weeks. She will follow-up with orthopedics in 2 weeks. Total Time Total Time Spent Total Time Spent (In Minutes): 20 Discharge Plan Discharge Items Patient Disposition: Home - Self-Care Reason For Visit: Fx Humerus, Left-Degenerative Joint Disease Should Discharge Diagnosis: Fracture reverse left shoulder arthroplasty Activity: As commented below Non-emergency contact: Surgeon Call non-emergency contact if: your wound has increased redness and your wound has increased drainage Follow-up/Referrals: Susanna Ryan CRNP [Primary Care Provider] - Diet: Carb Consistent or DM2 Addtl Attending Provider Instructions: Activity and Therapy Recommendations: * Wait until after your 6-week postop appointment to start physical therapy. * Wear your sling for 6 weeks, unless otherwise instructed. You may remove your sling to shower and to dress, but otherwise, you should be in your sling at all times, including while sleeping * The shoulder replacement is very stable and you can use your hand while in the sling * You were shown a series of exercises in the hospital. Do these exercises daily including the exercises you were shown in physical therapy. Medications: * Narcotic You will likely be sent home from the hospital with a prescription for the narcotic pain medication that worked best throughout your stay. * Other medications may be prescribed for specific circumstances. If you have any questions, please call the office at . * Resume previous home medications unless otherwise instructed Dressing Care: Leave the plastic dressing in place for 5 days. After 5 days you may remove the plastic dressing. If the incision is not draining then you may leave the jovani open to air. If there is a little bit of drainage or if the jovani are getting stuck on your clothing then cover the incision with a dry dressing. The jovani will be removed at your 2 week follow-up appointment. Showering: You may shower with the plastic dressing in place. Let the shower spray hit the other shoulder. You can pat the plastic dry. If the dressing becomes wet underneath the plastic then simply remove the dressing. Keep the incision dry until you are 5 days out from the day of surgery. At that time you can shower with the jovani exposed. Let the soapy shower water run over the jovani and pat them dry. Do not scrub or soak the incision. Things To Watch For: * Drainage from the incision site that occurs more than one week after your surgery. * Increased redness at the incision site. * Fever above 102 degrees Fahrenheit. * Unusual chest pain or shortness of breath. * Call [facility] at with any of the above problems Follow-Up Visit: Follow-up with Dr. Olvera 2-3 weeks after your day of surgery. An appointment was probably scheduled when you signed-up for surgery in the office. If you have any questions call Office Instructions: More detailed instructions as well as Frequently Asked Questions were provided in a folder by our office when you signed-up for surgery. Please review these instructions when you get home. If you have any further questions or concerns, please feel free to call the office at [phone] Pending Studies at Discharge: No Stand-Alone Forms: My [facility], Smoking Cessation Medications and DC Order Prescriptions: New hydrocodone-acetaminophen 5-325 mg tablet 1 tab PO Q6H PRN (Reason: pain) Qty: 30 RF: 0 Continued atorvastatin 10 mg tablet 10 mg PO QPM Qty: 1 RF: 0 hydrochlorothiazide 25 mg tablet 25 mg PO QAM Qty: 90 RF: 0 metformin 500 mg tablet extended release 24 hr 500 mg PO QPM RF: 0 losartan 50 mg tablet 50 mg PO QAM RF: 0 amlodipine 10 mg tablet 10 mg PO QAM RF: 0 ibuprofen 400 mg Tablet 400 mg PO QID PRN (Reason: Pain) RF: 0 Discharge Orders: Discharge Order (Routine); Ordered 12/13/18 Ordered By: Olu Olvera Admission Data Admit Date/Time: 12/12/18 17:13 Attending Provider: Olu Olvera Admit Provider: Olu Olvera Primary Care Provider: Susanna Ryan
[2018-12-13] MEDS: SODIUM CHLORIDE 0.9% 1000ML 1,000 ML IV SCH (07:12)
--- NOTE | 2018-12-13 08:10 | Anesthesiology Progress Note ---
Date of Service December 13, 2018 Anesthesia Post Procedure Vital Signs Vital Signs: Temp Pulse Pulse Resp BP Pulse Ox 12/13/18 06:59 36.9 C 85 17 146/73 H 95 12/13/18 02:34 37.1 C 79 15 149/88 H 95 12/12/18 23:58 36.6 C 81 16 137/76 95 12/12/18 21:29 36.7 C 91 H 24 127/71 96 12/12/18 20:29 36.7 C 86 18 151/71 H 96 12/12/18 19:19 36.2 C L 88 24 152/79 H 97 12/12/18 18:57 36.7 C 86 18 131/76 95 12/12/18 18:25 36.5 C 76 16 136/79 95 12/12/18 17:55 36.4 C L 71 24 121/72 94 12/12/18 17:45 65 21 130/65 94 12/12/18 17:35 70 22 141/72 H 96 12/12/18 17:25 75 21 161/80 H 100 12/12/18 17:16 36.5 C 74 16 136/72 99 12/12/18 11:57 36.7 C 80 18 176/84 H 96 Pain Intensity Left Shoulder: Pain Intensity: 3 Notes Mental Status: alert / awake / arousable Patient Amnestic to Procedure: Yes Nausea / Vomiting: adequately controlled Pain: adequately controlled Airway Patency, RR, SpO2: stable & adequate BP & HR: stable & adequate Hydration State: stable & adequate Anesthetic Complications: no major complications apparent and Pt Satisfied with anesthetic care
--- NOTE | 2018-12-13 08:12 | Pharmacy Report ---
Glycemic Control Consultation - Date of Service December 13, 2018 - Scope Scope: Glycemic Pharmacist consulted for glycemic control and to write orders per [facility] inpatient glycemic control protocol - Objective Weight: 95.209 kg Accuchecks BSG (last 24hrs): 12/12/18 12/12/18 12/12/18 11:55 17:21 18:39 Glucose POC Glucose 122 H 151 H 157 H 12/12/18 12/13/18 21:25 04:39 Glucose 132 H POC Glucose 189 H Laboratory Data (last 24hrs): 12/13/18 04:39 Potassium 3.6 Carbon Dioxide 25 Anion Gap 8.0 Creatinine 0.56 L Est Cr Clr Drug Dosing 106.7 HbA1c: Hemoglobin A1c 7.4 % (4.5-5.6) H 12/04/18 11:58 - Recent Pertinent Medications Outpatient Anti-diabetic Regimen: * metformin 1,000mg PO QPM Risk Factors for Insulin Resistance: * Diet * Recent surgery - Assessment & Plan Assessment & Plan: ASSESSMENT: * 68yo T2DM female with excellent outpatient control per recent A1c * Pt is maintained on oral antidiabetic agents as an outpatient * Oral agents are not recommended for inpatient use d/t drug interactions, changing PO intake, and difficulty titrating for acute hyper/hypoglycemia. ADA recommends re-initiating outpatient oral agents 1-2 days prior to discharge if/when appropriate if they were held on admission. * Will hold oral agents for admission and utilize SQ basal bolus insulin regimen which is the recommended regimen for inpatient glycemic control. * Will initiate weight based insulin dosing for insulin kylah patient and titrate based on BSG trends. PLAN FOR INPATIENT GLYCEMIC CONTROL: * Holding outpatient oral diabetes medications * Basal insulin * Lantus 20 units SQ x 1 dose last night * no further basal insulin needed as discharging home later today * Bolus insulin * NovoLog per scale ACHS or Q6hrs while NPO * Goal Range: Low 110 mg/dL - High 140 mg/dL * Correction Factor: 25 mg/dL/unit * Nutritional / Prandial insulin per carb ratio of 1 unit per 8 grams CHO consumed * Please note that the plan above was derived based on current level of insulin resistance and hospital stress. These recommendations are appropriate for inpatient admission only. Plan of care upon discharge will need to be reassessed to avoid potential outpatient hypo/hyperglycemia. Thank you.
[2018-12-13] MEDS: DOCUSATE SODIUM 100 MG CAP PO SCH (08:37)
[2018-12-13] MEDS: INSULIN ASPART 100 UNITS/ML 3 ML PEN SC SCH (08:48)
[2018-12-13] MEDS ORDERED: LOSARTAN POTASSIUM 50 MG TAB PO SCH (09:00)
[2018-12-13] MEDS ORDERED: AMLODIPINE BESYLATE 5 MG TAB PO SCH (09:00)
[2018-12-13] MEDS ORDERED: MULTIVITAMIN TAB PO SCH (09:00)
[2018-12-13] MEDS ORDERED: hydroCHLOROthiazide 25 MG TAB PO SCH (09:00)
== END 2018-12-13 11:27 | disposition home or self-care (01) | DRG 483 ==
LOC: ASU 11:34 → 3E 17:13